=== PATIENT | female | born 1970 | race Caucasian/White ===

== ENCOUNTER 2017-08-01 14:12 | Emergency (ER) | payer OTHER ==
[2017-08-01 17:48] LABS: BASOPHIL % 0.7 % (0-2); PLATELET COUNT 242 x10^3mcL (130-400)
[2017-08-01 17:51] LABS: RED CELL DISTRIBUTION WIDTH 19.1 % (11.5-14.5)
[2017-08-01 17:53] LABS: CALCIUM 8.9 mg/dL (8.5-10.1); CARBON DIOXIDE 28.3 mmol/L (21-32); CHLORIDE SERUM 105 mmol/L (98-107); CREATININE SERUM 0.7 mg/dL (0.6-1.0); GFR1 > 60 mL/min; GLUCOSE SERUM 89 mg/dL (74-106); POTASSIUM SERUM 4.2 mmol/L (3.5-5.1); SODIUM SERUM 139 mmol/L (136-145)
[2017-08-01 17:58] LABS: ALBUMIN 3.5 g/dL (3.4-5.0); ALKALINE PHOSPHATASE 59 U/L (46-116); ALT/SGPT 20 U/L (14-59); AMYLASE 58 U/L (25-115); AST/SGOT 17 U/L (15-37); BILIRUBIN TOTAL 0.36 mg/dL (0.20-1.00); LIPASE 205 IU/L (73-393); TOTAL PROTEIN, SERUM 7.9 g/dL (6.4-8.2)
[2017-08-01 19:04] LABS: microscopic required? YES; urine erythrocyte 2+ (NEGATIVE)
[2017-08-01 20:00] VITALS: BP 144/88
== END 2017-08-01 20:00 | disposition home or self-care (01) ==
LOC: ED 14:12
PROVIDERS: Emergency Medicine
DX: S39.011A Strain of muscle, fascia and tendon of abdomen, initial encounter (principal); S76.011A Strain of muscle, fascia and tendon of right hip, initial encounter; N93.8 Other specified abnormal uterine and vaginal bleeding; D50.0 Iron deficiency anemia secondary to blood loss (chronic); F41.9 Anxiety disorder, unspecified; X50.0XXA Overexertion from strenuous movement or load, initial encounter; Y93.89 Activity, other specified; Y92.89 Other specified places as the place of occurrence of the external cause; Y99.8 Other external cause status
CPT/HCPCS: J1885; J7030; Q9967